=== PATIENT | male | born 1950 | race Caucasian/White ===

== ENCOUNTER 2020-07-07 12:11 | Day surgery (SDC) | payer MEDICARE, BC ==
[~2020-07-07] VITALS: Ht 179.1 cm; Wt 107.7 kg
[~2020-07-07 12:11] MED LIST: DEXT10TA7 PO; SERT50TA PO
[2020-07-07 12:55] VITALS: BP 127/80
[2020-07-07] MEDS ORDERED: CHLORHEXIDINE 15 ML UDC PO ONE (13:00)
[2020-07-07] MEDS ORDERED: CHLORHEXIDINE 15 ML UDC ONE (13:01)
[2020-07-07] MEDS ORDERED: GEMCITABINE HCL 2,000 MG in SODIUM CHLORIDE 0.9% 80 ML BLADIN ONE (13:30)
[2020-07-07] MEDS ORDERED: LABETALOL 5MG/ML, 20ML IV PRN (14:00)
[2020-07-07] MEDS ORDERED: PROMETHAZINE 25 MG/ML, 1ML IVPush PRN (14:00)
[2020-07-07] MEDS ORDERED: FENTANYL PF 100 MCG/2ML IV PRN (14:00)
[2020-07-07] MEDS ORDERED: LACTATED RINGERS 1,000 ML IV SCH (14:00)
[2020-07-07] MEDS ORDERED: OXYcodone 5 MG/5 ML ORAL.SOL UDC PO PRN (14:00)
[2020-07-07] MEDS ORDERED: hydrALAzine 20 MG/ML, 1ML IV PRN (14:00)
[2020-07-07] MEDS ORDERED: EPHEDRINE 50 MG/ML, 1ML IVPush PRN (14:00)
[2020-07-07] MEDS ORDERED: ONDANSETRON 2MG/ML, 2ML IVPush PRN (14:00)
[2020-07-07] MEDS ORDERED: HYDROmorphone 1 MG/ML, 1ML INJ IVPush PRN (14:00)
[2020-07-07] MEDS ORDERED: ACETAMINOPHEN 325 MG TABLET PO PRN (14:00)
[2020-07-07] MEDS ORDERED: FENTANYL PF 250 MCG/5ML ONE (14:13)
[2020-07-07] MEDS ORDERED: LIDOCAINE-MPF 2% ,5ML ONE (14:20)
[2020-07-07] MEDS ORDERED: SODIUM CHLORIDE 0.9% PF 10ML ONE (14:20)
[2020-07-07] MEDS ORDERED: ROCURONIUM 10MG/ML,5ML ONE (14:20)
[2020-07-07] MEDS ORDERED: SUCCINYLCHOLINE 20 MG/ML, 10ML ONE (14:20)
[2020-07-07] MEDS ORDERED: KETOROLAC 30 MG/1 ML ONE ×2 (14:20→14:38)
[2020-07-07] MEDS ORDERED: ONDANSETRON 2MG/ML, 2ML ONE (14:20)
[2020-07-07] MEDS ORDERED: CEFAZOLIN 1,000 MG ONE (14:20)
[2020-07-07] MEDS ORDERED: DEXAMETHASONE 4 MG/ML, 1ML ONE (14:20)
[2020-07-07] MEDS ORDERED: PROPOFOL 10 MG/ML, 20ML ONE (14:20)
[2020-07-07] MEDS ORDERED: SUGAMMADEX 200 MG/2 ML IVPush ONE (14:38)
[2020-07-07] MEDS ORDERED: OPIUM/BELLADONNA SUPP.RECT 16.2-60 MG ONE (15:23)
== END 2020-07-07 17:50 | disposition home or self-care (01) ==
LOC: OR 12:11
PROVIDERS: ATTEND Urology
DX: C67.0 Malignant neoplasm of trigone of bladder (principal); C67.4 Malignant neoplasm of posterior wall of bladder; N40.0 Benign prostatic hyperplasia without lower urinary tract symptoms; G47.33 Obstructive sleep apnea (adult) (pediatric); Z20.822 Contact with and (suspected) exposure to COVID-19; Z79.899 Other long term (current) drug therapy
CPT/HCPCS: 51720; 52234; 52332; 74018; 87635; 88307; C2617; J0330; J0690; J1100; J1885; J2405; J2704; J3010; J7120; J9201; 76000